=== PATIENT | male | born 2000 | race Two or more races ===

== ENCOUNTER 2025-04-08 04:56 | Emergency (ER) | payer MEDICAID, OTHER ==
[~2025-04-08] VITALS: Ht 172.7 cm; Wt 63.0 kg
--- NOTE | 2025-04-08 05:06 | ED.PDOC ---
History of Present Illness(SKN HPI Comments PATIENT COMES WITH C/C OF RIGHT THUMB THROBBING PAIN AND SWELLING 03/24. PATIENT REPORTS HE CUT IT ON EITHER SCISSORS OR A KNIFE. DENIES NUMBNESS, WEAKNESS, FEVER, CHILLS, NAUSEA OR VOMITING. Chief Complaint: Upper Extremity Time Seen by MD: 05:04 History of Present Illness: Nurses Notes, Medications, Allergies Allergies: Coded Allergies: NO KNOWN ALLERGIES (Unverified , 04/08/25) Home Meds Active Scripts Amoxicillin & Pot Clavulanate (AUGMENTIN TABLET) 875 Mg Tb, 875 MG PO BID for 7 Days, #14 TAB Prov:JOSE PERRY NUCLEAR MEDICAL TECHNOLOGIST 04/08/25 Ibuprofen (Ibuprofen) 800 Mg Tab, 800 MG PO Q8HP PRN for 5 Days, #15 TAB Prov:VICKYJOSE NUCLEAR MEDICAL TECHNOLOGIST 04/08/25 Information Source: Patient Mode of Arrival: Ambulatory Past Medical History PAST MEDICAL HISTORY: Denies Surgical History: Denies all surgeries Family History Family History: Reviewed,noncontributory to illness Social History Smoker: Non-Smoker Alcohol: Denies ETOH Use Drugs: Denies Drug Use All Other Systems: Reviewed and Negative (SEE HPI) Physical Exam General Appearance: No Apparent Distress, Normal HEENT: Pharynx Normal Neck: Full Range of Motion, Normal Inspection Respiratory: Lungs Clear, No Respiratory Distress, Normal Breath Sounds Cardiovascular: No Murmur, Normal Peripheral Pulses, Regular Rate/Rhythm Breast Exam: Deferred Gastrointestinal: Non Tender, Soft Genitalia: Deferred Pelvic: Deferred Rectal: Deferred Extremities: Normal capillary refill, Normal range of motion Musculoskeletal : Apperance: Normal Neurologic: Alert, No Motor Deficits, Normal Affect, Normal Mood, No Sensory Deficits Cerebellar Function: Normal Reflexes: NOT DONE Skin: Dry, Normal Color, Warm, Wounds (RIGHT DISTAL MEDIAL PHALANX WITH SURROUNDING ERYTHEMA, EDEMA, OPEN BLISTER WITHOUT NOTED DRAINAGE. NO OBVIOUS BODY. NAIL INTACT. CAP REFILL LESS THAN 3 SECONDS. STRENGTH SENSORY MOTION INTACT) Lymphatic: No Adenopathy Was a procedure done? Was a procedure done?: No Differential Diagnosis (INTG) Differential Diagnosis: Cellulitis, Hematoma, Puncture Wound Differential Diagnosis: Abscess X-Ray, Labs, Meds, VS Vital Signs Date Time Temp Pulse Resp B/P (MAP) Pulse Ox O2 Delivery O2 Flow Rate FiO2 8/25/25 05:00 99.1 113 18 151/97 98 99.1 X-Ray, Labs, Meds, VS Comment PROBABLE INFECTION PATIENT GIVEN ROCEPHIN 1 G IM, TDAP GIVEN IM. SCRIPT TRIAL OF AUGMENTIN TWICE DAILY X7 DAYS ADVISED TO TAKE MEDICATION PRESCRIBED SIDE EFFECTS DISCUSSED. CLEANSED AND DRESSED. ADVISED TO FOLLOW UP WITH HIS PCP IN TWO DAYS FOR WOUND RE-EVALUATION IF UNABLE TO GET AN APPOINTMENT FOLLOW UP AT URGENT CARE OR BACK HERE IN THE ER. ER RETURN PRECAUTIONS GIVEN PATIENT INDICATES UNDERSTANDING AND AGREES WITH DISCHARGE PLAN OF CARE. Time of 1ST Reevaluation: 05:05 Reevaluation 1ST: Unchanged Time of 2ND Reevaluation: 05:32 Reevaluation 2ND: Improved Patient Education/Counseling: Diagnosis, Treatment, Prognosis, Need For Follow Up Family Education/Counseling: No Family Present SEPSIS Sepsis Screen Date sepsis recognized/suspect: Apr 08, 2025 Time Sepsis recognized/suspect: 501 Recent Procedure: No On Antibiotic Therapy: No Respiratory Rate >20: No Heart Rate >90: No Temp<36 C (96.8 F) or >38.3 C: No SBP <90 or MAP <65 mmHG: No New Acute Mental Status Change: No Is the patient on CPAP, BIPAP,: No Vital Signs Date Time Temp Pulse Resp B/P (MAP) Pulse Ox O2 Delivery O2 Flow Rate FiO2 04/08/25 05:00 99.1 113 18 151/97 98 99.1 Departure 1 Departure Time of Disposition: 05:17 Impression: Primary Impression: Infected wound Disposition: 01 HOME / SELF CARE / HOMELESS Condition: Stable e-Prescriptions Amoxicillin & Pot Clavulanate (AUGMENTIN TABLET) 875 Mg Tb 875 MG PO BID for 7 Days, #14 TAB Prov: JOSE PERRY 04/08/25 Ibuprofen (Ibuprofen) 800 Mg Tab 800 MG PO Q8HP PRN for 5 Days, #15 TAB Prov: JOSE PERRY 04/08/25 Discharged With: Self Critical Care Note Critical Care Time?: No Stability Stability form required: JOSE Peoples Apr 08, 2025 05:06
[2025-04-08] MEDS ORDERED: AUG875T PO (05:19)
[2025-04-08] MEDS ORDERED: IBUP-1456 PO (05:19)
[2025-04-08 05:45] VITALS: BP 136/92; TEMP 98.3
[2025-04-08 05:48] VITALS: PULSE 103; RESP 20; O2SAT 97
[2025-04-08] MEDS: cefTRIAXone SOD 1,000 MG VL IM ONE (05:51)
[2025-04-08] MEDS: HYDROcodone-ACET 5/325MG TAB PO ONE (05:52)
[2025-04-08] MEDS: TETANUS-DIPTH-ACEL PERTUSSIS 0.5ML SYR Tdap IM ONE (05:53)
== END 2025-04-08 06:17 | disposition home or self-care (01) ==
LOC: ER 04:56
DX: L08.9 Local infection of the skin and subcutaneous tissue, unspecified (principal); Z79.899 Other long term (current) drug therapy
CPT/HCPCS: 90471; 90715; 96372; 99284; J0696

== ENCOUNTER 2025-04-09 22:25 | Emergency (ER) | payer MEDICAID ==
[~2025-04-09] VITALS: Ht 172.7 cm; Wt 61.0 kg
[~2025-04-09 22:25] MED LIST: AUG875T PO; IBUP-1456 PO
[2025-04-10] MEDS: SODIUM CHLORIDE 0.9% 1,000 ML IV ONE (00:15)
[2025-04-10 00:45] LABS: Hematocrit 45.2 % (41.0-53.0); Hemoglobin 15.2 g/dL (13.5-17.5); Mean Corpuscular Hemoglobin 31.1 pg (28.0-32.0); Mean Corpuscular Volume 92.5 fL (80.0-100.0); Nucleated Red Blood Cells % 0.0 %
[2025-04-10 00:48] LABS: Alanine Aminotransferase 14 U/L (7-40); Albumin 4.8 g/dL (3.2-4.8); Alkaline Phosphatase 72 U/L (46-116); Anion Gap 9 (5-15); BUN/Creatinine Ratio 15.3 (10.0-20.0); Bilirubin, Total 0.4 mg/dL (0.2-1.0); Blood Urea Nitrogen 15 mg/dL (9-23); Calcium 9.3 mg/dL (8.7-10.4); Carbon Dioxide 26 mmol/L (20-31); Chloride 105 mmol/L (98-107); Glucose 90 mg/dL (74-106); Potassium 4.4 mmol/L (3.5-5.1); Sodium 140 mmol/L (136-145); Total Protein 7.5 g/dL (5.7-8.2)
--- NOTE | 2025-04-10 00:49 | DVH ---
INDICATION: pain swelling COMPARISON: None TECHNIQUE: CT of the rightleft shoulder was performed without contrast. Volume transverse images were obtained and reconstructed in multiple planes using bone and soft tissue algorithms. CONTRAST: None Radiation Dose Information: CTDI volume is a mGy. Dose-length product is 235 mGy*cm FINDINGS: Suboptimal patient positioning with flexion of all fingers slightly limits exam. Lack of recent radio graphic comparison also limits assessment. No evidence of acute fracture or joint malalignment. Plate screw fixation of the distal radial diaph ysis without evidence of hardware complication. No significant degenerative changes. No obvious join t effusion. Unremarkable CT appearance of muscles and tendons. Fluid density 2 cm lesion along the dorsal aspect of the 1st distal phalanx appears at the skin surfa ce. No other appreciated soft tissue abnormality. IMPRESSION: 1. No acute osseous finding of the right hand within the exam limitations. 2. Apparent dermal based fluid density 2 cm lesion along the dorsal distal thumb. Correlate with phy sical exam. 3. All CT scans at this medical facility are performed using dose modulation techniques as appropriat e to a performed exam including the following: Automated exposure control was utilized; adjustment of the MA and/or KV according to patient size; and use of iterative reconstruction technique.
--- NOTE | 2025-04-10 04:56 | ED.PDOC ---
Musculoskeletal HPI Comments HPI: 24 year old male presents to the emergency department with a chief complaint of RT thumb swelling onset 4 days. Patient was seen in this ED on 04/08/25, for RT thumb swelling, was prescribed Augmentin, given Tetanus shot. He states he has been taking Augmentin as prescribed, noticed swelling has worsened, redness is spreading down thumb, has numbness sensation on the tip of thumb. Patient is unsure if he cut his thumb cutting fruit or doing yard work. Denies nausea, vomiting, chest pain, dizziness, fever. No other symptoms or modifying factors present at this time. Patient was called since 01:31, 02:15 was a no answer, came back at 04:36. Initial Vitals BP: 131/96 HR: 111 RR: 16 O2: 97% Temp: 98.4 F Past Medical History: Denies Past Surgical History:Denies Social History: Denies ETOH, smoking, and drug use. Medications: Denies Allergies: NKDA HPI: Poor Historian. REVIEW OF SYSTEMS: CONSTITUTIONAL: Denies acute: fever, diaphoresis, chills, generalized weakness. HEAD: Denies acute: headache, photophobia Eyes: Denies acute: Double vision, vision loss, eye pain, eye discharge. EARS: Denies acute: tinnitus, hearing loss, ear discharge, ear pain, THROAT: Denies acute: sore throat, swelling, difficulty swallowing , pain with swallowing, change in voice. NECK: Denies acute: neck pain, neck swelling, stiff neck. HEART: Denies acute : chest pain, palpitations, LUNGS: Denies acute: SOB, wheezing, cough, hemoptysis ABDOMEN: Denies acute: abdominal pain, Nausea, Vomiting, diarrhea, melena , hematemesis, hematochezia SKIN: Denies acute: rash, redness, lesions, itchiness. EXTREMITIES: Denies acute: calf pain, numbness, tingling, weakness, Denies acute: Low back pain. Neuro: Denies acute: focal neurological deficit, motor or sensory focal neurological deficit, tremors, seizure like activity, confusion, dizziness, change in mental status, loss of bowel or bladder function, cauda equina like symptoms. : Denies acute: dysuria, hematuria, flank pain, increase in urinary frequency. PSYCH: Denies acute: hallucination, suicidal ideation, homicidal ideation. PHYSICAL EXAM: General: ----no----acute distress, awake and alert. Head: normocephalic, atraumatic. Neck: supple, trachea is midline, no swelling. Throat: Normal phonation. Eyes:, no erythema, no purulent discharge, no proptosis, no icterus. Heart: regular rate, regular rhythm, no significant murmur appreciated. Lungs: no apparent respiratory distress, Able to speak in full sentences. No wheezing, no rhonchi, no crackles. No stridors Clear to auscultation bilaterally. Abdomen: non tender to palpation, non distended, soft, no guarding, no rebound, + bowel sounds. Neuro: Awake, Alert, oriented to name, self, situation, follows commands GCS=15. Speech is normal. Skin: no petechia, no purpura, no cyanosis, non-pale, not jaundice. Lower extremities: --no - Pitting edema no deformity, no focal swelling, no calf TTP. Makes eye contact. moves all four extremities. Face: no apparent facial droop. Ambulating in the ED independently. Evaluation of the area of complaint: Patient points to his right thumb at the dorsum of the thumb below the nail bed where he has abscess swelling boil like present that is erythematous with the associated minimal erythema proximally. The area is tender to palpation. Patient is neurovascularly intact in the affected extremity. ED COURSE: DISCLAIMER: This medical document was created using an electronic medical record system with voice recognition software and computerized dictation system. Although this document has been carefully reviewed, there might still be some phonetic and typographical errors. Occasional wrong-word or "sound-alike" substitutions may have occurred due to the inherent limitations of voice recognition software. These areas are purely typographical due to imperfections of the software programs and do not reflect any compromise in the patient's medical care. Please read the chart carefully and recognize, using context, where these substitutions have occurred. Chief Complaint: Upper Extremity Time Seen by MD: 04:45 Reviewed Notes: Medications, Allergies Allergies: Coded Allergies: NO KNOWN ALLERGIES (Unverified , 04/08/25) Home Meds Active Scripts Amoxicillin & Pot Clavulanate (AUGMENTIN TABLET) 875 Mg Tb, 875 MG PO BID for 7 Days, #14 TAB Prov:JOSE PERRY OPERATOR CAVITY PUMP 04/08/25 Ibuprofen (Ibuprofen) 800 Mg Tab, 800 MG PO Q8HP PRN for 5 Days, #15 TAB Prov:JOSE PERRYP 04/08/25 Information Source: Patient Mode of Arrival: Ambulatory Location: Right Extremity Location: Thumb Timing: Days Prehospital treatment: Other (Augmentin) Severity: Moderate Able to Move Extremity: Yes Pain: Moderate Mechanism: Knife Cut Circumstances: Other Onset of Symptoms: Spontaneous Symptoms: Swelling, Pain, Erythema DVT Risk Factors: NONE Last Tetanus: UTD Past Medical History PAST MEDICAL HISTORY: Denies Surgical History: Denies all surgeries Family History Family History: Reviewed,noncontributory to illness Social History Smoker: Non-Smoker Alcohol: Denies ETOH Use Drugs: Denies Drug Use Lives In: Home Was a procedure done? Was a procedure done?: No Incision and Drainage Incision and Drainage: Abscess Preparation: Betadine, Saline, Wound cotton cleaner Incision and Wound: Pus Informed consent obtained: Yes Risks/benefits/alt described: Yes Notes 6 cc purulent puss was removed from dorsal part of thumb , about 5 mm incision was made, no bleeding or complications apparent. Betadine was applied afterwards, wound dressing will be applied. wound care instructions was given, wound culture was sent for analysis. Differential Diagnosis EXT Differential Diagnosis: Cellulitis, Deep Vein Thrombosis, Compartment Syndrome, Septic, Neurovascular injury X-Ray, Labs, Meds, VS Vital Signs Date Time Temp Pulse Resp B/P (MAP) Pulse Ox O2 Delivery O2 Flow Rate FiO2 04/09/25 22:32 98.4 111 16 131/96 97 98.4 Lab Test 04/10/25 00:20 Range/Units White Blood Count 8.0 4.4-10.8 10^3/uL Red Blood Count 4.89 4.5-5.90 10^6/uL Hemoglobin 15.2 13.5-17.5 g/dL Hematocrit 45.2 41.0-53.0 % Mean Corpuscular Volume 92.5 80.0-100.0 fL Mean Corpuscular Hemoglobin 31.1 28.0-32.0 pg Mean Corpuscular Hemoglobin Concent 33.7 32.0-36.0 g/dL Red Cell Distribution Width 13.3 11.8-14.3 % Platelet Count 254 140-450 10^3/uL Mean Platelet Volume 7.7 6.9-10.8 fL Neutrophils (%) (Auto) 74.0 37.0-80.0 % Lymphocytes (%) (Auto) 18.1 10.0-50.0 % Monocytes (%) (Auto) 6.0 0.0-12.0 % Eosinophils (%) (Auto) 1.4 0.0-7.0 % Basophils (%) (Auto) 0.5 0.0-2.0 % Neutrophils # (Auto) 5.9 1.6-8.6 10 ^3/uL Lymphocytes # (Auto) 1.4 0.4-5.4 10 ^3/uL Monocytes # (Auto) 0.5 0-1.3 10 ^3/uL Eosinophils # (Auto) 0.1 0-0.8 10 ^3/uL Basophils # (Auto) 0 0-0.2 10 ^3/uL Nucleated Red Blood Cells 0.0 % Erythrocyte Sedimentation Rate 2 0-20 mm/hr Sodium Level 140 136-145 mmol/L Potassium Level 4.4 3.5-5.1 mmol/L Chloride Level 105 98-107 mmol/L Carbon Dioxide Level 26 20-31 mmol/L Anion Gap 9 5-15 Blood Urea Nitrogen 15 9-23 mg/dL Creatinine 0.98 0.700-1.30 mg/dL Glomerular Filtration Rate Calc 111 >90 mL/min BUN/Creatinine Ratio 15.3 10.0-20.0 Serum Glucose 90 74-106 mg/dL Lactic Acid Level 1.1 0.4-2.0 mmol/L Calcium Level 9.3 8.7-10.4 mg/dL Total Bilirubin 0.4 0.2-1.0 mg/dL Aspartate Amino Transferase (AST) 32 13-40 U/L Alanine Aminotransferase (ALT) 14 7-40 U/L Alkaline Phosphatase 72 46-116 U/L C-Reactive Protein High Sensitivity 1.10 H <1.0 mg/dL Total Protein 7.5 5.7-8.2 g/dL Albumin 4.8 3.2-4.8 g/dL Current Medications Medications (Trade) Dose Ordered Sig/Lydia Route Start Time Stop Time Status Last Admin Acetaminophen/ Hydrocodone Bitart ([place] 5/325MG Tab) 1 tab ONCE ONCE PO 04/10/25 05:00 04/10/25 05:01 DC 04/10/25 05:[address] [address] Ph: [phone] DIAGNOSTIC IMAGING Diagnostic Imaging Report : [id number] Signed PATIENT: KYLE LOPEZ ACCT: [id number] UNIT: [id number] : 2000 LOC: ER ROOM / BED: / AGE / SEX: 24 / M ADM STATUS: REG ER SERVICE 0004 ORDERING PHYSICIAN: NASEEM LANDAVERDE DO PROCEDURE(s): RHNCT - CT R HAND WO CONTRAST REASON: pain swelling ORDER NUMBER(s): [id number], ACCESSION NUMBER(s): [id number] INDICATION: pain swelling COMPARISON: None TECHNIQUE: CT of the rightleft shoulder was performed without contrast. Volume transverse images were obtained and reconstructed in multiple planes using bone and soft tissue algorithms. CONTRAST: None Radiation Dose Information: CTDI volume is a mGy. Dose-length product is 235 mGy*cm FINDINGS: Suboptimal patient positioning with flexion of all fingers slightly limits exam. Lack of recent radiographic comparison also limits assessment. No evidence of acute fracture or joint malalignment. Plate screw fixation of the distal radial diaphysis without evidence of hardware complication. No significant degenerative changes. No obvious joint effusion. Unremarkable CT appearance of muscles and tendons. Fluid density 2 cm lesion along the dorsal aspect of the 1st distal phalanx appears at the skin surface. No other appreciated soft tissue abnormality. IMPRESSION: 1. No acute osseous finding of the right hand within the exam limitations. 2. Apparent dermal based fluid density 2 cm lesion along the dorsal distal thumb. Correlate with physical exam. 3. All CT scans at this medical facility are performed using dose modulation techniques as appropriate to a performed exam including the following: Automated exposure control was utilized; adjustment of the MA and/or KV according to patient size; and use of iterative reconstruction technique. ATED BY: MIRELLA OSORIO MD DICTATED DATE/TIME: 04/10/2546 SIGNED BY: MIRELLA OSORIO MD SIGNED DATE/TIME: 04/10/2546 CC: Time of 1ST Reevaluation: 05:15 Reevaluation 1ST: Unchanged Patient Education/Counseling: Diagnosis, Treatment Family Education/Counseling: No Family Present Comments MDM: patient presented with the above HPI.--right thumb abscess---workup was initiated. patient was found with the above mentioned diagnosis. the following medications were ordered: please refer to order lists of meds and tests obtained by myself Dr. Landaverde. Patient ED course and VS have been stabilized. Patient has been reassessed in the ED and remained in a stable condition. Pertinent incidental findings were discussed with the patient and/or family. Patient/family voices understanding and is agreeable with plan. Patient has been observed in the ED adequate length of time to insure improvement/stability. Escalation of care considered: Consideration of escalation to observation or admission Patient was DISCHARGED home in a stable condition. All the reports of any imaging studies that were ordered by myself were reviewed by myself. Departure 1 Departure Time of Disposition: 05:27 Impression: Primary Impression: Abscess of thumb, right Disposition: 01 HOME / SELF CARE / HOMELESS Condition: Stable Additional Instructions: Additional instructions: Please read all instructions provided in this packet carefully. You MUST follow-up with your primary care/family doctor in 1 to 2 days. If you are unable to see your primary care/family doctor, please return to our emergency room for re-assessment and re-evaluation in 1 to 2 days. Return to the emergency room here in our facility or to the nearest ER [facility] if your symptoms change or worsen. CONSULTATIONS: you MUST Follow-up for consultation as soon as possible with: surgeon in 1-2 days. Please call for appointment. You MUST call the consultants office yourself to make an appointment. You may need to arrange that through your insurance and/or your primary/family doctor. If you are unable to see the talent consultant in 1 to 2 days, you must return to our emergency room (or any other ER of your choice) for re-assessment and re- evaluation. Adequate fluid hydration. Although you have been discharged from the Emergency Department, this does not mean that you have a "clean bill of health". No definitive diagnosis for your symptoms has been made today. It is possible that you are in the process of developing a serious illness. This is why you must return to the ED without fail if any new or worsening symptoms develop. Do not submerge your hand in water in the next 48 hours. Keep the area clean dry and covered. Continue and finish antibiotics prescribed to you. Return for wound reassessment in 24-48 hours. Below is a copy of your radiological report for follow up: [address] [address] Ph: [phone] DIAGNOSTIC IMAGING Diagnostic Imaging Report : [id number] Signed PATIENT: KYLE LOPEZ ACCT: [id number] UNIT: [id number] : 2000 LOC: ER ROOM / BED: / AGE / SEX: 24 / M ADM STATUS: REG ER SERVICE 0004 ORDERING PHYSICIAN: NASEEM LANDAVERDE DO PROCEDURE(s): RHNCT - CT R HAND WO CONTRAST REASON: pain swelling ORDER NUMBER(s): [id number], ACCESSION NUMBER(s): [id number] INDICATION: pain swelling COMPARISON: None TECHNIQUE: CT of the rightleft shoulder was performed without contrast. Volume transverse images were obtained and reconstructed in multiple planes using bone and soft tissue algorithms. CONTRAST: None Radiation Dose Information: CTDI volume is a mGy. Dose-length product is 235 mGy*cm FINDINGS: Suboptimal patient positioning with flexion of all fingers slightly limits exam. Lack of recent radiographic comparison also limits assessment. No evidence of acute fracture or joint malalignment. Plate screw fixation of the distal radial diaphysis without evidence of hardware complication. No significant degenerative changes. No obvious joint effusion. Unremarkable CT appearance of muscles and tendons. Fluid density 2 cm lesion along the dorsal aspect of the 1st distal phalanx appears at the skin surface. No other appreciated soft tissue abnormality. IMPRESSION: 1. No acute osseous finding of the right hand within the exam limitations. 2. Apparent dermal based fluid density 2 cm lesion along the dorsal distal thumb. Correlate with physical exam. 3. All CT scans at this medical facility are performed using dose modulation techniques as appropriate to a performed exam including the following: Automated exposure control was utilized; adjustment of the MA and/or KV according to patient size; and use of iterative reconstruction technique. ATED BY: MIRELLA OSORIO MD DICTATED DATE/TIME: 04/10/25 0047 SIGNED BY: MIRELLA OSORIO MD SIGNED DATE/TIME: 04/10/25 0047 CC: Discharged With: Self Critical Care Note Critical Care Time?: No I personally scribed for NASEEM LANDAVERDE DO ([email or web address]) on 04/10/25 at 04:56. Electronically submitted by Fidelia Armijo ([email or web address]). I personally scribed for NASEEM LANDAVERDE DO ([email or web address]) on 04/10/25 at 05:00. Electronically submitted by Fidelia Armijo ([email or web address]). I personally scribed for NASEEM LANDAVERDE DO ([email or web address]) on 04/10/25 at 05:33. Electronically submitted by Fidelia Armijo ([email or web address]). NASEEM LANDAVERDE DO Apr 10, 2025 04:56
[2025-04-10] MEDS: HYDROcodone-ACET 5/325MG TAB PO ONE (05:01)
[2025-04-10] MEDS: AMPICILLIN & SULBACTAM SODIUM 3 GM in SODIUM CHL 0.9% 100 ML IV STA (08:31)
[2025-04-10 08:39] VITALS: BP 122/70; PULSE 93; RESP 20; TEMP 98; O2SAT 96
== END 2025-04-10 08:50 | disposition home or self-care (01) ==
LOC: ER 22:25
DX: L02.511 Cutaneous abscess of right hand (principal); Z79.2 Long term (current) use of antibiotics; Z79.899 Other long term (current) drug therapy
CPT/HCPCS: 10060; 36415; 73200; 80053; 83605; 85025; 85652; 86141; 87040; 87081; 96360; 99284; J7030